=== PATIENT | female | born 1990 | race Caucasian/White ===

== ENCOUNTER 2017-07-26 21:04 | Emergency (ER) | payer OTHER ==
[~2017-07-26] VITALS: Ht 167.6 cm; Wt 59.0 kg
[~2017-07-26 21:04] MED LIST: ACCUNEB SO1.25 MG/1 INH; NAPROSYN500 MG PO; OXYCODONE HCL 55 MG PO
[2017-07-26] MEDS ORDERED: LABETALOL HCL100 MG PO (21:15)
[2017-07-26] MEDS ORDERED: CORTISPORIN OTI10 ML OTIC (21:25)
== END 2017-07-26 21:56 | disposition home or self-care (01) ==
LOC: ER 21:04
DX: H60.93 Unspecified otitis externa, bilateral (principal); F17.210 Nicotine dependence, cigarettes, uncomplicated; Z88.1 Allergy status to other antibiotic agents; Z88.2 Allergy status to sulfonamides; Z88.5 Allergy status to narcotic agent

== ENCOUNTER 2020-03-10 16:07 | Emergency (ER) | payer OTHER ==
[~2020-03-10] VITALS: Ht 160 cm; Wt 86.2 kg
[~2020-03-10 16:07] MED LIST changes: +CORTISPORIN OTI10 ML OTIC; +LABETALOL HCL100 MG PO
[2020-03-10] MEDS ORDERED: PERCOCET 5-3251 EACH PO (18:30)
[2020-03-10 19:04] VITALS: BP 110/78
== END 2020-03-10 19:04 | disposition home or self-care (01) ==
LOC: ER 16:07
DX: S43.015A Anterior dislocation of left humerus, initial encounter (principal); F17.210 Nicotine dependence, cigarettes, uncomplicated; Z98.890 Other specified postprocedural states; Z79.899 Other long term (current) drug therapy; Z79.2 Long term (current) use of antibiotics; Z88.8 Allergy status to other drugs, medicaments and biological substances; Z88.6 Allergy status to analgesic agent; Z88.5 Allergy status to narcotic agent; Z88.2 Allergy status to sulfonamides; X50.0XXA Overexertion from strenuous movement or load, initial encounter; Y93.89 Activity, other specified; Y92.89 Other specified places as the place of occurrence of the external cause; Y99.8 Other external cause status

== ENCOUNTER 2020-04-13 20:55 | Emergency (ER) | payer OTHER ==
[~2020-04-13] VITALS: Ht 167.6 cm; Wt 90.7 kg
[~2020-04-13 20:55] MED LIST changes: +PERCOCET 5-3251 EACH PO
[2020-04-13] MEDS ORDERED: PROAIR HFA8.5 GM INH (21:06)
[2020-04-13 22:04] VITALS: BP 153/107
== END 2020-04-13 22:05 | disposition home or self-care (01) ==
LOC: ER 20:55
DX: G89.29 Other chronic pain (principal); M25.512 Pain in left shoulder; F17.210 Nicotine dependence, cigarettes, uncomplicated; Z98.890 Other specified postprocedural states; Z79.899 Other long term (current) drug therapy; Z88.1 Allergy status to other antibiotic agents; Z88.4 Allergy status to anesthetic agent; Z88.5 Allergy status to narcotic agent; Z88.2 Allergy status to sulfonamides; Z88.8 Allergy status to other drugs, medicaments and biological substances

== ENCOUNTER 2020-04-14 00:20 | Emergency (ER) | payer OTHER ==
[~2020-04-14] VITALS: Ht 167.6 cm; Wt 90.7 kg
[~2020-04-14 00:20] MED LIST changes: +PROAIR HFA8.5 GM INH
[2020-04-14 02:19] VITALS: BP 125/81
== END 2020-04-14 02:20 | disposition home or self-care (01) ==
LOC: ER 00:20
DX: M24.412 Recurrent dislocation, left shoulder (principal); F17.210 Nicotine dependence, cigarettes, uncomplicated; Z79.899 Other long term (current) drug therapy; Z88.1 Allergy status to other antibiotic agents; Z88.2 Allergy status to sulfonamides; Z88.5 Allergy status to narcotic agent; Z88.8 Allergy status to other drugs, medicaments and biological substances